=== PATIENT | female | born 1940 | race Caucasian/White ===

== ENCOUNTER 2016-06-29 01:32 | Day surgery (SDC) | payer MEDICARE ==
[~2016-06-29] VITALS: Ht 162.6 cm; Wt 47.6 kg
[2016-06-29] VITALS (7 sets, daily range): BP systolic 117–132; BP diastolic 68–77; PULSE 102–111; RESP 14–16; O2SAT 93–97
[~2016-06-29 01:32] MED LIST: ASPI-973 PO; CHOL200047 PO; ESTR1TAB24 PO; HYDR-4003 PO; INSLIS SUBQ; INSU100V7 SUBQ; PRAV20TA2 PO
[2016-06-29] MEDS ORDERED: fentaNYL-PF 50 mCg/mL 2 mL Inj IVPUSH PRN (06:00)
[2016-06-29] MEDS ORDERED: Sodium Chloride LOK Flush 10 mL Syringe IV PRN (06:00)
[2016-06-29] MEDS ORDERED: 0.9% Sodium Chloride 1,000 ML IV SCH (06:00)
[2016-06-29] MEDS ORDERED: 0.9% Sodium Chloride 1,000 ML IV ONE (09:12)
--- NOTE | 2016-06-29 10:22 | ENDO ---
[address] [address] ENDOSCOPY PROCEDURE PATIENT: GILLES THAPA : 1940 MR#: [id number] ADMIT: 06/29/2016 JOB ID: [id number] DATE: 06/29/2016 PROCEDURE: Colonoscopy. INDICATIONS: Screening. The patient's ASA classification is 2. Mallampati score is 2. MEDICATIONS: 1. Versed 8 mg. 2. Fentanyl 175 mcg. INSTRUMENT USED: PCF H 190 DL. PREPARATION QUALITY: Was fair. PROCEDURE DETAILS: After informed consent was obtained, the patient was brought into the GI suite, where she was placed on oxygen via nasal cannula and monitored with continuous pulse oximeter, telemetry and blood pressure monitoring. A time-out was performed. Then, she was placed in a left lateral decubitus position. Medications were administered for sedation. Digital rectal examination was performed, which was unremarkable. The colonoscope was then inserted into the rectum and advanced under direct visualization to the cecum, which was identified by the presence of the ileocecal valve and appendiceal orifice. Once the cecum was reached, the colonoscope was withdrawn back into the rectum as the mucosa and lumen were examined. In the rectum, retroflexion was performed. Following retroflexion, remaining air in the rectum was suctioned, and the procedure was completed. FINDINGS: 1. In the proximal ascending colon just distal to the ileocecal valve, there was an approximately 1.5 cm flat polyp. The polyp had mucus adherent to it and appearance was suggestive of a serrated polyp. Using normal saline, we lifted the polyp. However, there was a small portion that did not lift. The portion that lifted we removed in a piecemeal fashion. The small portion that did not left that we were unable to remove with a snare we removed with hot biopsy forceps. The resulting mucosal defect was approximated with placement of four hemoclips. 2. Just distal to this polyp in the ascending colon as well, there was an approximately 2.5 cm flat polyp overlying a fold. As the patient was having discomfort from prolonged procedure, Tess ink was injected distal to and proximal to the polyp for future identification. The remainder of the colon examination was otherwise unremarkable. There were a few scattered diverticula in the left side of the colon. 3. Retroflexed views in the rectum were unremarkable. IMPRESSION: 1. One ascending colon polyp removed and then four hemoclips placed. The second ascending colon polyp that was identified that was not removed. 2. Scattered diverticula throughout the left side of the colon. RECOMMENDATIONS: 1. Avoid nonsteroidal anti-inflammatory drugs and anticoagulants for five days. 2. Will schedule for repeat colonoscopy in 1-2 months for removal of ascending colon polyp that was not removed on today's examination. COMPLICATIONS: None. ESTIMATED BLOOD LOSS: Less than 10 mL.
--- NOTE | 2016-06-30 14:37 | PATH ---
SURGICAL PATHOLOGY Attending Physician:Veronika Ward CASE STATUS: Signed Out PATIENT NAME: GILLES THAPA PID: [id number] : 1940 DATE COLLECTED:06/29/2016 17:08 SPECIMEN: Colon, Biopsy CLINICAL HISTORY: 1. 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 ICD10: K63.5 GROSS DESCRIPTION: The specimen is received in one formalin filled container labeled with the patient's name, sublabeled "ascending polyp x1" and consists of 4 portions of tissue which aggregate to 0.6-0.6 x 0.4 CM. The specimen is entirely submitted in one cassette. 06/29/2016 [facility] ICD-9 CODES: CPT CODES: 1: 13661 Electronically Signed Out Loyda Ford MD [facility] Pathology [facility] [address], [place] [address] Technical component performed at [facility], [facility] [address], [place], [address]
== END 2016-06-29 23:59 | disposition home or self-care (01) ==
LOC: END 01:32
PROVIDERS: ATTEND Internal Medicine Gastroenterology
DX: Z12.11 Encounter for screening for malignant neoplasm of colon (principal); Z86.010 Personal history of colon polyps; D12.2 Benign neoplasm of ascending colon; K57.30 Diverticulosis of large intestine without perforation or abscess without bleeding; E10.65 Type 1 diabetes mellitus with hyperglycemia; E10.43 Type 1 diabetes mellitus with diabetic autonomic (poly)neuropathy; E78.5 Hyperlipidemia, unspecified; K21.9 Gastro-esophageal reflux disease without esophagitis; M81.8 Other osteoporosis without current pathological fracture; M51.26 Other intervertebral disc displacement, lumbar region; F17.290 Nicotine dependence, other tobacco product, uncomplicated; Z79.4 Long term (current) use of insulin; Z86.73 Personal history of transient ischemic attack (TIA), and cerebral infarction without residual deficits; Z79.82 Long term (current) use of aspirin; Z79.890 Hormone replacement therapy; Z90.710 Acquired absence of both cervix and uterus
CPT/HCPCS: 45381; 45385; 99153; G0500; J7030

== ENCOUNTER 2016-07-01 18:40 | Inpatient (IN) | payer MEDICARE ==
[~2016-07-01] VITALS: Ht 162.6 cm; Wt 49.6 kg
[2016-07-01 18:49] VITALS: BP 159/100; PULSE 130; RESP 20; O2SAT 96
[2016-07-01 19:17] VITALS: BP 119/54; PULSE 120; RESP 10; O2SAT 94
--- NOTE | 2016-07-01 19:38 | ED.REPORT ---
HPI-GI Bleed Date of Service July 01, 2016 ED Provider: Jose E Borja MD A 75 year old female with a history of diabetes and recent polyp removal presents to the ED complaining of rectal bleeding. The pt had a colonoscopy on 06/29/2016 and had one polyp removed. There were two other polyps that were not removed due to location and risk of bleeding. The pt experienced no bleeding yesterday. She had a normal bowel movement this morning but subsequently began experiencing significant rectal bleeding of bright red blood with bowel movements. This was accompanied by lightheadedness but she denies pain or vomiting. The pt is prescribed 105 mg of Vicodin every two months. Nursing Notes Stated Complaint: RECTAL BLEEDING Chief Complaint: Female Abdominal Pain Nursing Notes Reviewed: Yes Allergies: Coded Allergies: erythromycin base (Verified Allergy, Severe, stomach cramping, 01/19/10) Penicillins (Verified Allergy, Intermediate, 06/28/16) codeine (Verified Allergy, Intermediate, headache, 01/19/10) lovastatin (Verified Allergy, Intermediate, 06/28/16) Tetracyclines (Verified Allergy, Mild, 06/28/16) lisinopril (Verified Allergy, Mild, 06/28/16) Uncoded Allergies: INTOLERANCE TO UNKNOWN ABX (Adverse Reaction, Unknown, 02/15/09) Scheduled Aspirin (Aspirin) 81 Mg Tablet 81 MG PO DAILY Cholecalciferol (Vitamin D3) (Vitamin D3) 2,000 Unit Capsule 2,000 UNIT PO DAILY Estradiol (Estradiol) 1 Mg Tablet 1 MG PO DAILY Insulin Glargine (Lantus U100 Insulin Vial) 100 Unit/Ml Vial 10 UNITS SUBQ HS Pravastatin (Pravastatin) 20 Mg Tablet 20 MG PO DAILY Scheduled PRN Hydrocodone-Acetaminophen 5-325 mg (Hydrocodone-Acetaminophen 5-325 mg) 1 Each Tablet 1 TABLET PO Q4H PRN PRN For Pain Insulin Human Lispro (HumaLOG U100 Insulin Vial) 100 Unit/Ml Unit 4-5 UNIT SUBQ DIRECTED PRN PRN DM Check blood sugars before meals and at bedtime. Use correction factor only before meals. Blood Sugar Lispro Correction: <151, 0 units; 151-175, 1 unit; 176-200, 2 units; 201-225, 3 units; 226-250, 4 units; 251-275, 5 units; 276-300 , 6 units; 301-325, 7 units; 326-350, 8 units; 351-375, 9 units; 376-400, 10 units; >400, 12 units. General Time Seen by Provider: 19:37 Chief Complaint Chief Complaint: Other (rectal bleeding) Hx Obtained From: Patient Arrived By: Walk-in Onset Occurred: 9 - 12 hours ago Symptom Duration: Intermittent Recent Healthcare: Recent doctor visit Similar Sx Previous: No Past Medical History Past Medical History Type 1 DM Osteoarthritis Gastroparesis GERD Osteoporosis Past Surgical History Appendectomy Cholecystectomy Hysterectomy Fracture repairs Smoking History Current Every Day Smoker Social History Alcohol Use: 1-3 per day Ambulatory Status Independent Review of Systems Review of Systems Note: rectal bleeding Respiratory: Denies: Non-productive cough, Shortness of breath GI: Denies: Abdominal pain, Vomiting Neurologic: Reports: Lightheaded Complete sys rev & neg: except as marked. Physical Exam Initial Vital Signs Vital Signs (First) Date Time Temp Pulse Resp B/P Pulse Ox O2 Delivery O2 Flow Rate FiO2 07/01/16 18:49 36.2 130 20 159/100 96 Room Air Initial VS: Reviewed General/Constitutional: Awake, Alert Respiratory / Chest: Atraumatic, Breath sounds NL, Breath sounds = bilat, No respiratory distress Cardiovascular: Regular rhythm, Heart sounds NL Heart Rate / Rhythm: Positive: Tachycardia Abdomen: Atraumatic, Soft, No guarding, No rebound mild diffuse tenderness Rectum / Perineum: Atraumatic bright red blood outside the rectum gross maroon blood in rectum Head / Eyes: Atraumatic, Normocephalic, PERRL, EOMI ENT: Atraumatic, Airway patent, Mucous membranes moist Skin Skin: Atraumatic, Color NL, No rash, Warm, Dry Neurologic: Oriented X3, Speech NL, No motor deficits, No sensory deficits Neck: Atraumatic, Supple, Full range of motion Back: Atraumatic, Full range of motion Upper Extremity / MS: Atraumatic, Full range of motion Lower Extremity / Pelvis / MS: Atraumatic, Full range of motion Psychiatric: Affect NL, Mood NL Interpretation & Diagnostics Lab Results Interpretation Result Diagram: 07/01/16191907/01/161919 Test 07/01/16 19:20 White Blood Count 10.8th/mm3 (3.8-10.1) Red Blood Count 3.95mil/mm3 (3.90-5.20) Hemoglobin 13.1g/dL (12.0-15.6) Hematocrit 38.7% (35.0-46.0) Mean Corpuscular Volume 98.0fL (81-100) Mean Corpuscular Hemoglobin 33.2pg (27.0-35.0) Mean Corpuscular Hemoglobin Concent 33.9% (32.0-37.0) Red Cell Distribution Width 12.5% (12.3-15.4) Platelet Count 304bil/L (150-400) Neutrophils (%) (Auto) 73.6% (40-74) Lymphocytes (%) (Auto) 17.2% (14-46) Monocytes (%) (Auto) 7.3% (4-12) Eosinophils (%) (Auto) 0.8% (0-5) Basophils (%) (Auto) 0.7% (0-3) Prothrombin Time 10.0sec (8.1-12.5) Prothromb Time International Ratio 0.94ratio Sodium Level 136mEq/L (134-144) Potassium Level 4.3mEq/L (3.5-5.2) Chloride Level 95mEq/L (97-108) Carbon Dioxide Level 23mmol/L (18-29) Blood Urea Nitrogen 8mg/dL (8-27) Creatinine 0.51mg/dL (0.57-1.00) Estimat Glomerular Filtration Rate 169mL/min (>59) Glucose Level 419mg/dL (60-99) Calcium Level 8.8mg/dL (8.5-10.1) Total Bilirubin 0.4mg/dL (0.0-1.2) Aspartate Amino Transf (AST/SGOT) 15U/L (0-50) Alanine Aminotransferase (ALT/SGPT) 10U/L (0-32) Alkaline Phosphatase 104U/L (25-165) Total Protein 6.2g/dL (6.4-8.4) Albumin 3.5g/dL (3.4-5.0) ECG Interpretation ECG Interpretation: sinus tachycardia with a rate of 120 Time: 19:36 Interpreted by: ED physician Re-Eval/Medical Decision Source of Hx: Old records Re-Evaluation/Progress #1: Time of Eval: 20:29 Re-Evaluation/Progress Note: Spoke with Duke, pt's son, on the phone. Pt's son is informed of the plan for admission. Re-Evaluation/Progress #2: Time of Eval: 22:15 Patient Status: Condition improved Re-Evaluation/Progress Note: Current heart rate is 109. Patient is resting comfortably. Consultation #1: Consulted With: Hospitalist Call Returned at: 20:37 Investment Fund Manager: Agrees with eval, Agrees with plan, Accepts admit Note: Spoke with Dr. Patino, hospitalist, regarding pt's case. Dr. Patino agrees with the evaluation and agrees to admit the pt. Consultation #2: Referral / Consult Name: Dexter Mullen MD Call Returned at: 20:40 Investment Fund Manager: Agrees with eval, Agrees with plan Note: Consulted with ALEXEI Go, regarding pt's case. Dr. Mullen agrees with the evaluation and plan and agrees to consult. Consultation #3: Referral / Consult Name: Dexter Mullen MD Call Returned at: 21:06 Investment Fund Manager: Agrees with eval, Agrees with plan Note: Spoke with ALEXEI Go, regarding pt's case. Dr. Mullen recommends prepping the pt for colonoscopy. Counseled Regarding: Diagnosis, Lab results, Need for admission Discharge & Departure Impression: Primary Impression: Lower GI bleed Disposition: ADMITTED TO HOSPITAL Discharge Condition All VS Reviewed: Yes Condition: Stable Referrals: Velasquez Elizabeth MD (PCP) Karyna Mata MD Attestation Portions of this note were transcribed by Areli Logan. I, Dr. Borja personally performed the history, physical exam and medical decision-making; I reviewed and confirmed the accuracy of the information in the transcribed note. Signed by: Sarah Saenz, 07/01/16 and 2041. copies to: Karyna Mata MD; Velasquez Elizabeth MD, Kirk H MD July 01, 2016 19:38 ARELI LOGAN July 01, 2016 19:59
[2016-07-01 19:43] LABS: BASOPHILS % (AUTO) 0.7 % (0-3); EOSINOPHILS % (AUTO) 0.8 % (0-5); MONOCYTES % (AUTO) 7.3 % (4-12); Mean Corpuscular Hemoglobin 33.2 pg (27.0-35.0); NEUTROPHILS % (AUTO) 73.6 % (40-74); Platelet Count 304 bil/L (150-400)
[2016-07-01 19:59] LABS: INR 0.94 ratio
[2016-07-01 21:00] VITALS: BP 121/67; PULSE 121; RESP 28; O2SAT 97
[2016-07-01] MEDS ORDERED: 0.9% Sodium Chloride 1,000 ML IV ONE (21:00)
[2016-07-01] MEDS ORDERED: PEG/Electrolytes 4,000 mL Solution PO ONE (21:10)
--- NOTE | 2016-07-01 21:38 | PCM.HPMED ---
Subjective Date of Service July 01, 2016 Primary Provider: Admitting Physician: Torsten Patino MD Primary Care Physician: Velasquez Elizabeth MD Attending Physician: Torsten Patino MD Admit Status: From the Emergency Department Chief Complaint: Acute rectal bleed onset 07/01/2016 status post colonoscopy and polyp biopsy 06/30/2015 History of Present Illness: This is a 75 Y/O F with hx of DM type I and recent colonoscopy with polypectomy 2 days ago () by GI, who presented to the ED with complaint of bright red blood per rectum, reportedly combined with small black specks approximately 1 hour after passing a normal bowel movement this morning. The pt had a colonoscopy on 06/29/2016 and had one polyp removed. There were two other polyps that were not removed due to location and risk of bleeding. The pt experienced no bleeding yesterday. Patient states that she has had 8-9 episodes of bleeding all day today requiring her to go to the toilet. She states that around 6:30 PM she began to feel lightheaded and and generalized weakness which prompted her to come to the ED. Patient usually takes 2 baby aspirin per day however she had not taken aspirin today. She did take aspirin yesterday. She is on no other blood thinners. She has no history of bleeding disorder. Patient denies dizziness, nausea, vomiting, fever, headache, vision changes, diarrhea, constipation, abdominal pain. In the ED patient received Colyte 4000 mL once. She received 1 L normal saline bolus. She was admitted to the hospital for acute rectal bleed and lightheadedness. GI is aware of patient. Vital signs in the ED: Temperature 36.2, pulse 1:30, respiratory rate 20, blood pressure 159/100, map 119, pulse ox 96% on room air Hemogram showed WBCs 10.8, H/H 13.1/38.7, MCV 98.0, MCH 33.2, MCHC 33.9, platelets 304, otherwise normal hemogram. Chemistry panel: Glucose 419, right 95, otherwise normal PT INR 10.0/0.94 Review of Systems: A comprehensive review of systems was conducted and was negative except as mentioned in history of present illness. Allergies Coded Allergies: erythromycin base (Verified Allergy, Severe, stomach cramping, 01/19/10) Penicillins (Verified Allergy, Intermediate, 06/28/16) codeine (Verified Allergy, Intermediate, headache, 01/19/10) lovastatin (Verified Allergy, Intermediate, 06/28/16) Tetracyclines (Verified Allergy, Mild, 06/28/16) lisinopril (Verified Allergy, Mild, 06/28/16) Uncoded Allergies: INTOLERANCE TO UNKNOWN ABX (Adverse Reaction, Unknown, 02/15/09) Home Medications Aspirin (Aspirin) 81 Mg Tablet 81 MG PO DAILY Cholecalciferol (Vitamin D3) (Vitamin D3) 2,000 Unit Capsule 2,000 UNIT PO DAILY Estradiol (Estradiol) 1 Mg Tablet 1 MG PO DAILY Insulin Glargine (Lantus U100 Insulin Vial) 100 Unit/Ml Vial 10 UNITS SUBQ HS Pravastatin (Pravastatin) 20 Mg Tablet 20 MG PO DAILY PRN Hydrocodone-Acetaminophen 5-325 mg (Hydrocodone-Acetaminophen 5-325 mg) 1 Each Tablet 1 TABLET PO Q4H PRN PRN For Pain Insulin Human Lispro (HumaLOG U100 Insulin Vial) 100 Unit/Ml Unit 4-5 UNIT SUBQ DIRECTED PRN PRN DM Check blood sugars before meals and at bedtime. Use correction factor only before meals. Blood Sugar Lispro Correction: <151, 0 units; 151-175, 1 unit; 176-200, 2 units; 201-225, 3 units; 226-250, 4 units; 251-275, 5 units; 276-300 , 6 units; 301-325, 7 units; 326-350, 8 units; 351-375, 9 units; 376-400, 10 units; >400, 12 units. PMH Type 1 DM Tobacco use and trying to quit History of ischemic stroke December 2015 Osteoarthritis Gastroparesis GERD Osteoporosis Surgical History Appendectomy age 13 Cholecystectomy 9 years ago Hysterectomy age 49 Fracture repairs of left wrist fracture and left tibia fracture Family History Father HI Mother cancer of unknown type Sister breast cancer Sister tumor Brother after a broken hip Social History Hx Alcohol Use: Yes Alcoholic Drinks Per Day: 2-3 glasses white wine Hx Substance Use: No Hx Tobacco Use: Yes (1/2ppd) Smoking Status: Current Every Day Smoker Exam Vital Signs Vital Sign - Last Date Time Temp Pulse Resp B/P Pulse Ox O2 Delivery O2 Flow Rate FiO2 07/01/16 21:00 121 28 121/67 97 Room Air 07/01/16 18:49 36.2 Exam General: Patient is alert and oriented 3, in no acute distress, was initially sleeping at time of interview. HEENT: NC/AT, eyes, conjunctiva pale, PERRLA, EOMI, neck, soft supple, no adenopathy, no JVD, no masses, no thyromegaly, throat mucous membranes pink and moist/Dry, edentulous, no erythema, no exudates, no tonsillar swelling, no uvular deviation. Lungs: CTAB all peres, no wheezes, no rhonchi, no crackles, no adventitious lung sounds, no use of accessory muscles of respiration, good air movement, good respiratory effort. Heart: Regular rate and rhythm, grade 2/6 systolic murmur heard best at the left sternal border, no rub, no click, no distant heart sounds, Abdomen: Soft, nontender, nondistended, bowel sounds active, no rebound, no guarding, Genitourinary: No CVA tenderness, no suprapubic tenderness, no Maurice catheter, Extremities: Pulses equal and symmetric upper/lower extremity including radial and dorsalis pedis, no edema Neurologic: Grossly neurologically intact, speaking in full sentences, no focal neurological signs. Skin: Warm dry and intact without tenting Psychiatric: Mood is cheerful and mood and affect are congruent and appropriate. Lab and Diagnostics Result Diagram: 07/01/16191907/01/161919 Assessment & Plan # Acute rectal bleed, present on admission, active - Patient blood type A+ - Patient is status post colonoscopy with biopsy be by Dr. Gross, who presented to the ED with acute onset rectal bleeding 2 days after her colonoscopy. GI has been consulted by the ED and is aware of the patient. - In the ED patient received Colyte 4000 mL once. - She received 1 L normal saline bolus. - Hemogram showed WBCs 10.8, H/H 13.1/38.7, MCV 98.0, MCH 33.2, MCHC 33.9, platelets 304, otherwise normal hemogram. - PT INR 10.0/0.94 - Stool Hemoccult - IV fluids normal saline at 100 mL per hour. - We will type and crossmatch 2 units PRBC's - Transfusion threshold of 8 - GI Sebas Renteria, has been consulted and is aware of patient and will see patient in the morning. 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 # Hyperglycemia, and a known type 1 diabetic - Glucose 410 in the ED - We will start medium dose correctional insulin - Continue home medications Lantus U1 100, 10 units subcutaneous at bedtime Chronic problems # Type 1 DM, - Continue home medications Lantus U1 100, 10 units subcutaneous at bedtime - We will start med-dose correctional scale insulin, patient on lispro 100 units at home and takes 4-5 units subcutaneous as directed when necessary # History of ischemic stroke - Continue medication pravastatin 20 mg by mouth daily # Osteoarthritis, assume stable Patient takes Vicodin 06/28/2024 milligrams 1 tablet by mouth every 4 hours when necessary for pain # Tobacco use disorder - He smokes 12 cigarettes per day - Nicotine patch while in-house #Gastroparesis, stable #GERD, stable #Osteoporosis, assume stable Disposition: Admitted to in patient service with expected length of stay greater than 2 days, secondary to severity of presenting symptoms, treatment plan, complexity of clinical work up, and risk of adverse events. CODE STATUS: Full code PCP: Velasquez Elizabeth MD DVT PE prophylaxis: SCD's Contact: Duke fagan's son [phone] Pain Evaluation: Adequate Pain Control VTE Prophylaxis: SCDs Resuscitation Status: CPR: Attempt Resuscitation Attending Statement The patient was seen and examined together with Dr. House on 07/01 and I agree with the history, exam and plan as outlined in the note above. Des House DO July 01, 2016 21:38 Torsten Patnio MD July 02, 2016 02:47
[2016-07-01] MEDS ORDERED: Alum-Mag Hydrox-Simeth 30 mL Suspension PO PRN (21:55)
[2016-07-01] MEDS ORDERED: Polyethylene Glycol (PEG) 17 Gm Powder PO PRN (21:55)
[2016-07-01] MEDS ORDERED: Ondansetron 2 mg/mL 2 mL Inj IVPUSH PRN (21:55)
[2016-07-01 23:08] VITALS: BP 111/62; PULSE 111; RESP 16; O2SAT 96
[2016-07-01] MEDS ORDERED: MULT-1065 PO (23:13)
[2016-07-02] VITALS (11 sets, daily range): BP systolic 84–139; BP diastolic 41–69; PULSE 94–118; RESP 16–20; O2SAT 95–100
[2016-07-02] MEDS: 0.9% Sodium Chloride 1,000 ML IV SCH ×3 (00:17→22:43)
[2016-07-02] MEDS: Sodium Chloride LOK Flush 10 mL Syringe IVFLUSH SCH ×3 (00:19→17:08)
[2016-07-02] MEDS ORDERED: Glucose 40% Oral Gel 15 Gm Tube PO PRN (02:15)
[2016-07-02] MEDS: Insulin LISPRO 300 Unit/3 mL Inj SUBQ SCH ×5 (02:18→21:04)
[2016-07-02] MEDS: Insulin GLARgine 100 Unit/mL Syringe SUBQ SCH ×2 (03:30→21:04)
[2016-07-02 03:53] LABS: BASOPHILS % (AUTO) 0.6 % (0-3); EOSINOPHILS % (AUTO) 1.4 % (0-5); MONOCYTES % (AUTO) 9.2 % (4-12); Mean Corpuscular Hemoglobin 34.2 pg (27.0-35.0); Mean Corpuscular Volume 98.7 fL (81-100); NEUTROPHILS % (AUTO) 63.6 % (40-74); Platelet Count 215 bil/L (150-400)
--- NOTE | 2016-07-02 10:04 | PCM.HPANE ---
Patient Data Date of Service: July 02, 2016 Surgeon Admitting Provider:Torsten Patino MD Attending Provider:Torsten Patino MD Primary Care Physician:Velasquez Elizabeth MD Other Provider: Reason for Visit Lower Gi Bleed Ht/WT & BMI Height (Feet): 5 Height (Inches): 4.00 Weight (Kilograms): 45.600 Body Mass Index 17.16 Allergies Coded Allergies: erythromycin base (Verified Allergy, Severe, stomach cramping, 01/19/10) Penicillins (Verified Allergy, Intermediate, 06/28/16) codeine (Verified Allergy, Intermediate, headache, 01/19/10) lovastatin (Verified Allergy, Intermediate, 06/28/16) Tetracyclines (Verified Allergy, Mild, 06/28/16) lisinopril (Verified Allergy, Mild, 06/28/16) Uncoded Allergies: INTOLERANCE TO UNKNOWN ABX (Adverse Reaction, Unknown, 02/15/09) Past Anesthesia History Anesthesia History: Denies:: Anesthesia Reactions, Fam Malignant Hypertherm Diabetes History Hx Diabetes?: Yes (t1 insulin dependent) Type of Diabetes: Type I Glycemic Control: Insulin Dependent Current Bedside Blood Glucose: 276 MRSA MRSA: No Medications Blood Thinner: Aspirin Hypertension Medication: No Home Meds Incl Beta Ilia: No Reported Medications Multivits-Min/Iron/FA/Lutein (Centrum Silver Women Tablet)8 Mg Iron-400 Mcg-300 Mcg Tablet1 Each PO 07/01/16 Cholecalciferol (Vitamin D3) (Vitamin D3)2,000 Unit Capsule2,000 Unit PO DAILY 06/28/16 Estradiol 1 Mg Tablet1 Mg PO DAILY Ref 0 06/28/16 Hydrocodone-Acetaminophen 5-325 mg 1 Each Tablet1 Tablet PO Q4H PRN For Pain Ref 0 06/28/16 Insulin Human Lispro (HumaLOG U100 Insulin Vial)100 Unit/Ml Unit4-5 Unit SUBQ DIRECTED PRN DM #1 VIAL Ref 0 Check blood sugars before meals and at bedtime. Use correction factor only before meals. Blood Sugar Lispro Correction: <151, 0 units; 151-175, 1 unit; 176-200, 2 units; 201-225, 3 units; 226-250, 4 units; 251-275, 5 units; 276-300, 6 units; 301-325, 7 units; 326-350, 8 units; 351-375, 9 units; 376-400, 10 units; >400, 12 units. 06/28/16 Insulin Glargine (Lantus U100 Insulin Vial)100 Unit/Ml Vial10 Units SUBQ HS #1 VIAL Ref 0 06/28/16 Pravastatin 20 Mg [id number] Mg PO DAILY Ref 0 06/28/16 Aspirin 81 Mg [id number] Mg PO DAILY Ref 0 06/28/16 Discontinued Reported Medications Insulin Lispro-Expunged Drug, Do Not Renew! (Humalog-Expunged Drug, Do Not Renew !)100 U/Ml Vial Sq Ac SLIDING SCALE 01/18/10 Insulin Glargine-Expunged Drug, Do Not Renew! (Lantus-Expunged Drug, Do Not Renew!)100 U/Ml [id number] U Sq Hs 01/18/10 Hydrocod/APAP-Expunged, Do Not Renew! (Hydrocod/APAP 5/500-Expunged, Do Not Renew!)1 Tab Tablet1-2 Tab PO Q4 PRN Every 4-6 hours as needed 01/18/10 [estradiol] No Conflict Check1 Mg PO AM 01/18/10 History History of ENT Problems?: Yes HEENT History: Positive for:: Cataracts ("Cataract surgery a couple years ago ") Denies:: Dysphagia Glaucoma Hearing Problem Sinus Problem Denture Type: None Teeth Condition: No Teeth Missing Teeth Hx of Heart Problems?: No Cardiovascular History: Denies:: Congestive Heart Failure Hypertension Pacemaker Hx of Respiratory Problem?: No Respiratory History: Denies:: Tuberculosis Hx Neurologic Problems?: Yes Neurological History: Positive for:: Dizziness Denies:: Alzheimer's Disease CVA Dementia Headaches Parkinson's Disease Seizures Hx of GI Problems?: Yes Gastrointestinal History: Positive for:: Rectal Bleeding Hx of Problems?: No Genitourinary History: Denies:: HX of Hemodialysis Kidney Stones Urinary Tract Infection HX of Peritoneal Dialysis: No Female Hx: Denies:: Currently Endometriosis Pelvic Inflammatory Problems with Breasts? Hx Musculoskeletal Problems?: Yes Musculoskeletal History: Positive for:: Back Injury ("3 broken vertabrae") Musculoskeletal Trauma Denies:: Joint Replacement Hx of Psycho/Social Problems?: Yes Psycho Social History: Positive for:: Hx Depression (Last a few days and resolves) Denies:: Anxiety Bipolar Disorder Suicide Attempt Hx Surgeries?: Yes (appy,hyster, and fractures,lap luis) Hx Any Other Health Problems?: Yes Other History: Positive for:: Hospitalization Denies:: Cancer Thyroid Disease History Blood Transfusions: Positive for:: Accept Blood Products? Blood Transfusions Denies:: Blood Transfuse Reaction Hx Diabetes: Yes (t1 insulin dependent)Bedside Blood Glucose: 358 Hx Alcohol Use: YesAlcoholic Drinks Per Day: 2-3 glasses/wineHx Substance Use : No Smoking Status: Current Every Day Smoker Have You Smoked inLast 12 mo: YesApprox How Many Cigarettes/day: 12 Stop/Bang Treated for Sleep Apnea?: No Do You Have a CPAP Machine?: No S-Snoring: Do You Snore Loudly: No T-Tired: feel tired, fatigued: No O-Obsered: Observed not breath: No P-Blood Pressure: treated: Yes B- Body Mass Index > 35 kg/m2: No A- Age over 50: Yes N- Neck Large Circumference: No G- Gender Male: No NARINDER Total Score: 1 NARINDER Risk Assessment: Low Risk, <3 Yes Risk Assessment Category Category 1A: Patient has history of documented sleep apnea, and HAS NOT received any narcotic, sedative or anesthesia administration during this stay. Category 1B: Patient has history of documented sleep apnea, and HAS received any narcotic , sedative or anesthesia administration during this stay Category 2: Patient has SUSPECTED Obstructive Sleep Apnea, and HAS received any narcotic , sedative or anesthesia administration during this stay. Category 3: Patient has SUSPECTED Obstructive Sleep Apnea and HAS NOT received narcotic, sedative or anesthesia administration during this stay. Category 4: Outpatient in Procedural Areas with known sleep apnea or who screen positive for High Risk via the STOP/BANG questionnaire. Exam Exam Vital Signs Vital Signs Date Time Temp Pulse Resp B/P Pulse Ox O2 Delivery O2 Flow Rate FiO2 07/02/16 08:53 36.8 111 18 95/47 95 Room Air 07/02/16 05:08 106 07/02/16 03:27 36.7 112 16 127/58 98 Room Air General Appearance: Alert, Oriented X3 HEENT/AIRWAY: MP 2 Lungs: Clear to Auscultation Heart: Exam Unremarkable Meds/Labs/Diagnostics Admission Meds Current Medications Sodium Chloride (Normal Saline) 1,000 ml @ 0 mls/hr Q0M ONCE IV Last administered on 07/01/16t 21:06; Start 07/01/16 at 21:00; Stop 07/01/16 at 21:01; Status DC Sodium Chloride 10 ml 10 ml Q8 IVFLUSH Last administered on 07/02/16 09:25; Start 07/02/16 at 00:30 Sodium Chloride (Normal Saline) 1,000 ml @ 100 mls/hr Q10H IV Last administered on 07/02/16 09:15; Start 07/01/16 at 21:51 Nicotine (Nicoderm 21 mg/ 24 Hr Patch) 1 patch DAILY TOPICAL Last administered on 07/02/16 09:21; Start 07/02/16 at 08:30 Insulin Human Lispro (HumaLOG Insulin Inj) Nutritional Dose to be given pr... [facility] SUBQ Last administered on 07/02/16 09:25; Start 07/02/16 at 02:18 Cholecalciferol (Vitamin D3) 2,000 unit DAILY PO Last administered on 07/02/16 09:19; Start 07/02/16 at 08:30 Bedside Blood Glucose: 358 Labs Test 07/01/16 19:20 07/02/16 03:44 07/02/16 08:37 Prothrombin Time 10.0sec (8.1-12.5) Prothromb Time International Ratio 0.94ratio Magnesium Level 1.6mg/dL (1.6-2.6) White Blood Count 8.8th/mm3 (3.8-10.1) Red Blood Count 3.04mil/mm3 (3.90-5.20) Mean Corpuscular Volume 98.7fL (81-100) Mean Corpuscular Hemoglobin 34.2pg (27.0-35.0) Mean Corpuscular Hemoglobin Concent 34.7% (32.0-37.0) Red Cell Distribution Width 12.3% (12.3-15.4) Platelet Count 215bil/L (150-400) Neutrophils (%) (Auto) 63.6% (40-74) Lymphocytes (%) (Auto) 24.9% (14-46) Monocytes (%) (Auto) 9.2% (4-12) Eosinophils (%) (Auto) 1.4% (0-5) Basophils (%) (Auto) 0.6% (0-3) Sodium Level 139mEq/L (134-144) Potassium Level 4.5mEq/L (3.5-5.2) Chloride Level 103mEq/L (97-108) Carbon Dioxide Level 19mmol/L (18-29) Blood Urea Nitrogen 9mg/dL (8-27) Creatinine 0.37mg/dL (0.57-1.00) Estimat Glomerular Filtration Rate 245mL/min (>59) Glucose Level 278mg/dL (60-99) Calcium Level 8.2mg/dL (8.5-10.1) Total Bilirubin 0.4mg/dL (0.0-1.2) Aspartate Amino Transf (AST/SGOT) 12U/L (0-50) Alanine Aminotransferase (ALT/SGPT) 7U/L (0-32) Alkaline Phosphatase 77U/L (25-165) Total Protein 4.9g/dL (6.4-8.4) Albumin 3.2g/dL (3.4-5.0) Hemoglobin 9.6g/dL (12.0-15.6) Hematocrit 28.8% (35.0-46.0) Plan Impression Patient chart reviewed, patient interviewed and anesthestic plan with risks, benefits, and alternatives discussed, and informed consent obtained. ASA Physical Status: ASA3 Plus Emergency Anesthetic Plan: MAC Bene/Risks/Altern/Consents: Yes HP Complete Prior to Induction: Yes Juan Brown MD July 02, 2016 10:04
[2016-07-02] MEDS ORDERED: PEG/Electrolytes 4,000 mL Solution PO ONE (10:50)
--- NOTE | 2016-07-02 10:59 | PCM.CHPMED ---
Subjective Date of Service: July 02, 2016 Primary Physician: Admitting Physician: Torsten Patino MD Primary Care Physician: Velasquez Elizabeth MD Attending Physician: Torsten Patino MD Chief Complaint: Chief Complaint: Acute GI bleed History of Present Illness: GI consult note 75-year-old female who underwent colonoscopy with polypectomy on 06/29/16 who presented to the ED with complaint of large amounts of bright red blood per rectum with questionable clots. Patient states that this started after she had a normal bowel movement yesterday morning. Patient states that she has had no bleeding until yesterday when she had 8-9 episodes of sheila blood patch through rectum. Yesterday evening around 6:30 she began to be symptomatic and presented to the emergency department. Patient is on aspirin but otherwise on no other blood thinners. GI was called and last evening, colonoscopy prep was recommended for colonoscopy in am. I evaluation today the patient denies dizziness, nausea, vomiting, fever, headache, vision changes, constipation, or abdominal pain but states that she is still passing blood. Review of Systems: See history of present illness PMH Past Medical History Type 1 DM Tobacco use and trying to quit History of ischemic stroke December 2015 Osteoarthritis Gastroparesis GERD Osteoporosis Hx Any Other Health Problems?: YesHx Diabetes: YesBedside Blood Glucose: 276 Surgical History Appendectomy age 13 Cholecystectomy 9 years ago Hysterectomy age 49 Fracture repairs of left wrist fracture and left tibia fracture Home Medications Aspirin (Aspirin) 81 Mg Tablet 81 MG PO DAILY Cholecalciferol (Vitamin D3) (Vitamin D3) 2,000 Unit Capsule 2,000 UNIT PO DAILY Estradiol (Estradiol) 1 Mg Tablet 1 MG PO DAILY Insulin Glargine (Lantus U100 Insulin Vial) 100 Unit/Ml Vial 10 UNITS SUBQ HS Pravastatin (Pravastatin) 20 Mg Tablet 20 MG PO DAILY Allergies: Coded Allergies: erythromycin base (Verified Allergy, Severe, stomach cramping, 01/19/10) Penicillins (Verified Allergy, Intermediate, 06/28/16) codeine (Verified Allergy, Intermediate, headache, 01/19/10) lovastatin (Verified Allergy, Intermediate, 06/28/16) Tetracyclines (Verified Allergy, Mild, 06/28/16) lisinopril (Verified Allergy, Mild, 06/28/16) Uncoded Allergies: INTOLERANCE TO UNKNOWN ABX (Adverse Reaction, Unknown, 02/15/09) Family History Family History Father DC Mother cancer of unknown type Sister breast cancer Sister tumor Brother after a broken hip Social History Hx Alcohol Use: YesAlcoholic Drinks Per Day: 2-3 glasses/wineHx Substance Use : NoHx Tobacco Use: Yes (1/2ppd) Smoking Status: Current Every Day Smoker Living Arrangement: with Family Exam Vital Signs Vital Sign - Last Date Time Temp Pulse Resp B/P Pulse Ox O2 Delivery O2 Flow Rate FiO2 07/02/16 10:38 104 16 112/57 100 Nasal Cannula 2 07/02/16 08:53 36.8 Intake and Output 07/01/16 07/01/16 07/02/16 Cumulative From/Thru 15:00 23:00 07:00 07/01/16 18:49 - 07/02/16 06:01 Intake Total 1000 ml 572 ml 1572 ml Balance 1000 ml 572 ml 1572 ml Intake IV Total 1000 ml 572 ml 1572 ml Additional Information: Gen.: Patient no acute distress, alert and oriented HEENT, conjunctiva pale, PERRLA, neck is supple Cardio: Regular rate and rhythm, distant murmur Respiratory: CTA bilaterally no wheezes Abdomen: Soft, nontender, nondistended, active bowel tones Extremities: Pulses equal and intact Neurologic grossly intact Skin warm Psych: Appropriate mood and affect Lab and Diagnostics Result Diagram: 07/02/16 0837 07/02/16 0344 Assessment & Plan Assessment Assessment/plan 75-year-old female who presented with copious amounts of bright red blood per rectum with reported history of 8-9 frankly bloody bowel movements at home status post polypectomy 3 days ago. This morning patient denies any symptoms other than blood in stool but H&H continues to decline. Patient already received transfusions. As there continues to be ongoing bloody bowel movements with declining lab values we will take the patient for emergent colonoscopy this morning. Patient already received GoLYTELY. I have seen and examined the patient with the resident and agree with above. Thank you for allowing us participate in the care of this patient Problems: Pain Evaluation: Adequate Pain Control VTE Prophylaxis: SCDs Resuscitation Status: CPR: Attempt Resuscitation BrowningEladio ge July 02, 2016 10:59 Dexter Mullen MD July 02, 2016 14:43 Dexter Mullen MD July 02, 2016 14:43
--- NOTE | 2016-07-02 11:00 | PCM.ANEP1 ---
Post Anesthesia Phase 1 PACU Phase 1 Assessment Date of Service: July 02, 2016 Vital Signs Vital Signs Date Time Temp Pulse Resp B/P Pulse Ox O2 Delivery O2 Flow Rate FiO2 07/02/16 10:38 104 16 112/57 100 Nasal Cannula 2 07/02/16 10:00 118 07/02/16 08:53 36.8 111 18 95/47 95 Room Air 07/02/16 05:08 106 07/02/16 03:27 36.7 112 16 127/58 98 Room Air Anesthetic Administered: MAC Level of Alertness: Awake, talking Pain: No Nausea or Vomiting: No Oxygen Delivery: Room Air Lungs: Clear to Auscultation Complications: No Follow up Care: No Juan Brown MD July 02, 2016 11:00
[2016-07-02] MEDS ORDERED: Phenylephrine/NS-PF 100 mCg/mL 5 mL Syringe IVPUSH ONE (13:39)
[2016-07-02] MEDS ORDERED: Propofol 10,000 mCg/mL 20 mL Inj ONE (13:39)
[2016-07-02] MEDS ORDERED: fentaNYL-PF 50 mCg/mL 2 mL Inj ONE (13:39)
--- NOTE | 2016-07-02 14:28 | PCM.PNMED ---
Subjective Date of Service July 02, 2016 Subjective reports ongoing bright red blood per rectum. denies any abdominal pain, nausea, vomiting. no other new issues/complaints. Exam Vital Signs Vital Sign - Last Date Time Temp Pulse Resp B/P Pulse Ox O2 Delivery O2 Flow Rate FiO2 07/02/16 11:54 118 18 139/69 99 Room Air 07/02/16 10:38 2 07/02/16 08:53 36.8 Intake and Output 07/01/16 07/01/16 07/02/16 Cumulative From/Thru 15:00 23:00 07:00 07/01/16 18:49 - 07/02/16 06:01 Intake Total 1000 ml 572 ml 1572 ml Balance 1000 ml 572 ml 1572 ml Intake IV Total 1000 ml 572 ml 1572 ml General: Alert, Cooperative, No Acute Distress Head: Normal Eyes: Scleral Anicteric Nose: Mucous Membr Moist/Fontana Mouth: Mucous Membr Moist/Fontana Neck: Supple Chest & Lungs: Chest Wall Normal, Clear to auscultation & percussion Cardiovascular: Regular Rate/Rhythm Abdomen: Non-tender, Non-distended, Normoactive bowel tones, Soft Extremities: No cyanosis/clubbing/edma bilat Neurological: Grossly Neurologically Intact, Normal Speech Lab and Diagnostics Result Diagram: 07/02/16 1325 07/02/16 0344 Assessment & Plan 75 year old female with history of DM type I and recent colonoscopy with polypectomy 2 days prior to presentation presents with report of bright red blood per rectum # Acute lower GI bleed 2 days after her colonoscopy, present on admission, active - Appreciate GI consult. Will followup with recommendations - Tentative plan is for colonoscopy today. 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 # History of ischemic stroke - Continue medication pravastatin 20 mg by mouth daily - Aspirin on hold given GI bleed noted above - Resumption of Aspirin per GI recommendations. Chronic and stable problems: # Osteoarthritis, assume stable - Patient takes Vicodin 06/28/2024 milligrams 1 tablet by mouth every 4 hours when necessary for pain # Tobacco use disorder - Smokes 12 cigarettes per day - Nicotine patch while in-house # Diabetic Gastroparesis, stable # GERD, stable # Osteoporosis, assume stable Disposition: possibly home in 1-2 days pending colonoscopy finding, stable h/h and ability to tolerate advancing diet. VTE Prophylaxis: SCDs Resuscitation Status: CPR: Attempt Resuscitation Luis Henriquez July 02, 2016 14:28
--- NOTE | 2016-07-02 15:52 | PCM.HPANE ---
Patient Data Date of Service: July 02, 2016 Surgeon Admitting Provider:Torsten Patino MD Attending Provider:Torsten Patino MD Primary Care Physician:Velasquez Elizabeth MD Other Provider: Reason for Visit Lower Gi Bleed Ht/WT & BMI Height (Feet): 5 Height (Inches): 4.00 Weight (Kilograms): 45.600 Body Mass Index 17.00 Allergies Coded Allergies: erythromycin base (Verified Allergy, Severe, stomach cramping, 01/19/10) Penicillins (Verified Allergy, Intermediate, 06/28/16) codeine (Verified Allergy, Intermediate, headache, 01/19/10) lovastatin (Verified Allergy, Intermediate, 06/28/16) Tetracyclines (Verified Allergy, Mild, 06/28/16) lisinopril (Verified Allergy, Mild, 06/28/16) Uncoded Allergies: INTOLERANCE TO UNKNOWN ABX (Adverse Reaction, Unknown, 02/15/09) Past Anesthesia History Anesthesia History: Denies:: Anesthesia Reactions, Fam Anesthesia Reaction, Fam Malignant Hypertherm, Malignant Hyperthermia Diabetes History Hx Diabetes?: Yes Type of Diabetes: Type I Glycemic Control: Insulin Dependent Current Bedside Blood Glucose: 267 MRSA MRSA: No Medications Blood Thinner: Aspirin Hypertension Medication: No Home Meds Incl Beta Ilia: No Reported Medications Multivits-Min/Iron/FA/Lutein (Centrum Silver Women Tablet)8 Mg Iron-400 Mcg-300 Mcg Tablet1 Each PO 07/01/16 Cholecalciferol (Vitamin D3) (Vitamin D3)2,000 Unit Capsule2,000 Unit PO DAILY 06/28/16 Estradiol 1 Mg Tablet1 Mg PO DAILY Ref 0 06/28/16 Hydrocodone-Acetaminophen 5-325 mg 1 Each Tablet1 Tablet PO Q4H PRN For Pain Ref 0 06/28/16 Insulin Human Lispro (HumaLOG U100 Insulin Vial)100 Unit/Ml Unit4-5 Unit SUBQ DIRECTED PRN DM #1 VIAL Ref 0 Check blood sugars before meals and at bedtime. Use correction factor only before meals. Blood Sugar Lispro Correction: <151, 0 units; 151-175, 1 unit; 176-200, 2 units; 201-225, 3 units; 226-250, 4 units; 251-275, 5 units; 276-300, 6 units; 301-325, 7 units; 326-350, 8 units; 351-375, 9 units; 376-400, 10 units; >400, 12 units. 06/28/16 Insulin Glargine (Lantus U100 Insulin Vial)100 Unit/Ml Vial10 Units SUBQ HS #1 VIAL Ref 0 06/28/16 Pravastatin 20 Mg [id number] Mg PO DAILY Ref 0 06/28/16 Aspirin 81 Mg [id number] Mg PO DAILY Ref 0 06/28/16 Discontinued Reported Medications Insulin Lispro-Expunged Drug, Do Not Renew! (Humalog-Expunged Drug, Do Not Renew !)100 U/Ml Vial Sq Ac SLIDING SCALE 01/18/10 Insulin Glargine-Expunged Drug, Do Not Renew! (Lantus-Expunged Drug, Do Not Renew!)100 U/Ml [id number] U Sq Hs 01/18/10 Hydrocod/APAP-Expunged, Do Not Renew! (Hydrocod/APAP 5/500-Expunged, Do Not Renew!)1 Tab Tablet1-2 Tab PO Q4 PRN Every 4-6 hours as needed 01/18/10 [estradiol] No Conflict Check1 Mg PO AM 01/18/10 History History of ENT Problems?: Yes HEENT History: Positive for:: Cataracts ("Cataract surgery a couple years ago ") Denies:: Dysphagia Glaucoma Hearing Problem Sinus Problem Denture Type: None Teeth Condition: No Teeth Missing Teeth Hx of Heart Problems?: No Cardiovascular History: Denies:: Congestive Heart Failure Hypertension Pacemaker Hx of Respiratory Problem?: No Respiratory History: Denies:: Tuberculosis Hx Neurologic Problems?: Yes Neurological History: Positive for:: Dizziness Denies:: Alzheimer's Disease CVA Dementia Headaches Parkinson's Disease Seizures Hx of GI Problems?: Yes Hx of Problems?: No Genitourinary History: Denies:: HX of Hemodialysis Kidney Stones Urinary Tract Infection HX of Peritoneal Dialysis: No Female Hx: Denies:: Currently Endometriosis Pelvic Inflammatory Problems with Breasts? Hx Musculoskeletal Problems?: Yes Musculoskeletal History: Positive for:: Back Injury ("3 broken vertabrae") Musculoskeletal Trauma Denies:: Joint Replacement Hx of Psycho/Social Problems?: Yes Psycho Social History: Positive for:: Hx Depression (Last a few days and resolves) Denies:: Anxiety Bipolar Disorder Suicide Attempt Hx Surgeries?: Yes (appy,hyster, and fractures,lap luis) Hx Any Other Health Problems?: Yes Other History: Positive for:: Hospitalization Denies:: Cancer Thyroid Disease History Blood Transfusions: Positive for:: Accept Blood Products? Blood Transfusions Denies:: Blood Transfuse Reaction Hx Diabetes: YesBedside Blood Glucose: 267 Hx Alcohol Use: YesAlcoholic Drinks Per Day: 2-3 glasses/wineHx Substance Use : No Smoking Status: Current Every Day Smoker Have You Smoked inLast 12 mo: YesApprox How Many Cigarettes/day: 12 Stop/Bang Treated for Sleep Apnea?: No Do You Have a CPAP Machine?: No S-Snoring: Do You Snore Loudly: No T-Tired: feel tired, fatigued: No O-Obsered: Observed not breath: No P-Blood Pressure: treated: Yes B- Body Mass Index > 35 kg/m2: No A- Age over 50: Yes N- Neck Large Circumference: No G- Gender Male: No NARINDER Total Score: 2 NARINDER Risk Assessment: Low Risk, <3 Yes Risk Assessment Category Category 1A: Patient has history of documented sleep apnea, and HAS NOT received any narcotic, sedative or anesthesia administration during this stay. Category 1B: Patient has history of documented sleep apnea, and HAS received any narcotic , sedative or anesthesia administration during this stay Category 2: Patient has SUSPECTED Obstructive Sleep Apnea, and HAS received any narcotic , sedative or anesthesia administration during this stay. Category 3: Patient has SUSPECTED Obstructive Sleep Apnea and HAS NOT received narcotic, sedative or anesthesia administration during this stay. Category 4: Outpatient in Procedural Areas with known sleep apnea or who screen positive for High Risk via the STOP/BANG questionnaire. Low Risk, <3 Yes Exam Exam Vital Signs Vital Signs Date Time Temp Pulse Resp B/P Pulse Ox O2 Delivery O2 Flow Rate FiO2 07/02/16 11:54 118 18 139/69 99 Room Air 07/02/16 11:00 Room Air 07/02/16 10:38 104 16 112/57 100 Nasal Cannula 2 07/02/16 10:00 118 07/02/16 08:53 36.8 111 18 95/47 95 Room Air General Appearance: Alert, Cooperative, No Acute Distress HEENT/AIRWAY: MP 2 Lungs: Clear to Auscultation Heart: Exam Unremarkable Meds/Labs/Diagnostics Admission Meds Current Medications Sodium Chloride (Normal Saline) 1,000 ml @ 0 mls/hr Q0M ONCE IV Last administered on 07/01/16 21:06; Start 07/01/16 at 21:00; Stop 07/01/16 at 21:01; Status DC Sodium Chloride 10 ml 10 ml Q8 IVFLUSH Last administered on 07/02/16 09:25; Start 07/02/16 at 00:30 Sodium Chloride (Normal Saline) 1,000 ml @ 100 mls/hr Q10H IV Last administered on 07/02/16 09:15; Start 07/01/16 at 21:51 Nicotine (Nicoderm 21 mg/ 24 Hr Patch) 1 patch DAILY TOPICAL Last administered on 07/02/16 09:21; Start 07/02/16 at 08:30 Insulin Human Lispro (HumaLOG Insulin Inj) Nutritional Dose to be given pr... [facility] SUBQ Last administered on 07/02/16 09:25; Start 07/02/16 at 02:18 Cholecalciferol (Vitamin D3) 2,000 unit DAILY PO Last administered on 07/02/16 09:19; Start 07/02/16 at 08:30 Polyethylene Glycol/ Electrolytes (Colyte) 4,000 ml ONCE ONCE PO Last administered on 07/02/16 11:18; Start 07/02/16 at 10:50; Stop 07/02/16 at 11:07; Status DC Bedside Blood Glucose: 267 Labs Test 07/01/16 19:20 07/02/16 03:44 07/02/16 13:25 Prothrombin Time 10.0sec (8.1-12.5) Prothromb Time International Ratio 0.94ratio Magnesium Level 1.6mg/dL (1.6-2.6) White Blood Count 8.8th/mm3 (3.8-10.1) Red Blood Count 3.04mil/mm3 (3.90-5.20) Mean Corpuscular Volume 98.7fL (81-100) Mean Corpuscular Hemoglobin 34.2pg (27.0-35.0) Mean Corpuscular Hemoglobin Concent 34.7% (32.0-37.0) Red Cell Distribution Width 12.3% (12.3-15.4) Platelet Count 215bil/L (150-400) Neutrophils (%) (Auto) 63.6% (40-74) Lymphocytes (%) (Auto) 24.9% (14-46) Monocytes (%) (Auto) 9.2% (4-12) Eosinophils (%) (Auto) 1.4% (0-5) Basophils (%) (Auto) 0.6% (0-3) Sodium Level 139mEq/L (134-144) Potassium Level 4.5mEq/L (3.5-5.2) Chloride Level 103mEq/L (97-108) Carbon Dioxide Level 19mmol/L (18-29) Blood Urea Nitrogen 9mg/dL (8-27) Creatinine 0.37mg/dL (0.57-1.00) Estimat Glomerular Filtration Rate 245mL/min (>59) Glucose Level 278mg/dL (60-99) Calcium Level 8.2mg/dL (8.5-10.1) Total Bilirubin 0.4mg/dL (0.0-1.2) Aspartate Amino Transf (AST/SGOT) 12U/L (0-50) Alanine Aminotransferase (ALT/SGPT) 7U/L (0-32) Alkaline Phosphatase 77U/L (25-165) Total Protein 4.9g/dL (6.4-8.4) Albumin 3.2g/dL (3.4-5.0) Hemoglobin 11.6g/dL (12.0-15.6) Hematocrit 35.2% (35.0-46.0) Plan Impression Patient chart reviewed, patient interviewed and anesthestic plan with risks, benefits, and alternatives discussed, and informed consent obtained. NPO per Anesth. Guidelines: Yes ASA Physical Status: ASA3 Severe Disease Bene/Risks/Altern/Consents: Yes HP Complete Prior to Induction: Yes Juan Brown MD July 02, 2016 15:52
[2016-07-02] MEDS ORDERED: Ondansetron 2 mg/mL 2 mL Inj IVPUSH PRN (16:10)
[2016-07-02] MEDS ORDERED: Lactated Ringer's 1,000 ML IV ONE (16:10)
[2016-07-02] MEDS: Lactated Ringer's 1,000 ML IV SCH ×3 (16:10→16:37)
[2016-07-02] MEDS ORDERED: MetoCLOpramide 5 mg/mL 2 mL Inj IVPUSH PRN (16:10)
[2016-07-02] MEDS ORDERED: EPINEPHrine 0.1 mg/mL 10 mL Syringe IV ONE (16:22)
--- NOTE | 2016-07-02 16:30 | PCM.ENDCOL ---
Colonoscopy Date of Service: July 02, 2016 Physician Torsten Patino MD Pre Procedure Diagnosis: GI bleeding Post Procedure Dx & Findings: Post polypectomy bleed Procedure Colonoscopy PROCEDURE IN DETAIL: Prep fair After unremarkable rectal examination the Olympus video colonoscope was inserted patient's anal canal and was advanced to cecum. Landmarks were identified including the ileocecal valve and appendiceal orifice. Scope was withdrawn systematically. No gross bleeding noted. However multiple diverticuli noted with scarring in the sigmoid colon. Also there was a 1 cm polyp that was noticed on the way in in the sigmoid colon. In the ascending colon right next to the ileocecal valve, there was a large 2 cm ulceration with mucosal defect with 4 clips. In the middle of the ulceration, there was a spot which the clip did not cover. In that spot, there was a visible vessel. 2 mL epinephrine injected. One Endo Clip was successfully deployed at the base. To ensures stabilization of the critical clip, second clip was deployed across it holding the base of this clip. One clip misfired. This misfired clip was the first clip was attempted to deploy initially. In the rectum retroflexion was done which showed hemorrhoids. Anal canal was inspected carefully on the way out and hemorrhoids noted. Impression Successful hemostasis of post-polypectomy bleed Recommendation CXR PA and Lateral per anesthesia Repeat colonoscopy in 2-3 month Follow-up in the GI clinic with Dr. Novak. Presedation Assessment Risks and Benefits Informed consent was obtained from the patient after all risks and benefits including but not limited to drug reaction, infection, pain, bleeding, perforation, as well as alternatives were discussed. Patient monitoring Continuous pulse oximetry, cardiac monitoring, blood pressure monitoring, IV access, and oxygen at 2L per nasal cannula. Complications There were no periprocedural complications identified. Post Procedure Plan Post Procedure Recommendations 1. Restrict activities today. 2. Resume normal activities in the morning. 3. Resume medications. 4. Patient informed of normal post procedure side effects as bloating, drowsiness, blood streaking in the stool. 5. average risk CRCS. If colon polyps come back as: -Hyperplastic- can repeat colonoscopy in 10 years -Tubular adenoma- repeat colonoscopy in 5 years -Tubulovillous/villous adenoma- repeat colonoscopy in 3 years -If any dysplasia- return to clinic as soon as possible 6. Please don't hesitate to call me with any questions. Dexter Mullen MD July 02, 2016 16:30
--- NOTE | 2016-07-02 16:58 | PCM.ANEP1 ---
Post Anesthesia Phase 1 PACU Phase 1 Assessment Date of Service: July 02, 2016 Vital Signs Vital Signs Date Time Temp Pulse Resp B/P Pulse Ox O2 Delivery O2 Flow Rate FiO2 07/02/16 16:40 102 16 88/47 100 Nasal Cannula 2 07/02/16 11:54 118 18 139/69 99 Room Air 07/02/16 11:00 Room Air 07/02/16 10:38 104 16 112/57 100 Nasal Cannula 2 07/02/16 10:00 118 Anesthetic Administered: MAC Level of Alertness: Awake, talking Pain: No Nausea or Vomiting: No Oxygen Delivery: Room Air Lungs: Clear to Auscultation Complications: Yes Follow up Care: Yes Comments During the colonoscopy, the patient was seen to have large volume clear fluid vomit. Her oropharynx was suction with her head of bed lowered to allow passive drainage away from her airway. She appeared to protect her airway throughout as she resisted the suction catheter with her tongue. She remained 100% throughout on pulse-ox. After the procedure, she was clear to auscultation and had no subjective feeling of tight chest or respiratory distress. A CXR was discussed with the primary team to further evaluate her risk of potential aspiration. Juan Brown MD July 02, 2016 16:58
[2016-07-02] MEDS: Pantoprazole 4 mg/mL 10 mL Inj IVPUSH SCH (17:06)
--- NOTE | 2016-07-02 17:50 | DRSVH ---
PROCEDURE: X-RAY CHEST ONE VIEW, PORTABLE ([id number]) INDICATIONS: post anesthesia with concern for aspiration TECHNIQUE: One view of the chest was acquired. COMPARISON: [facility], , CHEST 1VW (PORTABLE), 01/19/2010, 16:44. FINDINGS: Surgical changes and devices: None. Lungs and pleura: No pleural effusions or pneumothorax. Lungs are clear. Mediastinum: Mediastinal contours appear normal. Heart size is normal. Bones and chest wall: No suspicious bony lesions. Overlying soft tissues appear unremarkable. IMPRESSION: No acute process. Dictated by: Du Chavez M.D. on 07/02/2016 at 17:48 Approved by: Du Chavez M.D. on 07/02/2016 at 17:49
[2016-07-02] MEDS: HYDROcodone-APAP 5-325 mg Tablet PO PRN (19:59)
[2016-07-03] MEDS: Sodium Chloride LOK Flush 10 mL Syringe IVFLUSH SCH ×4 (00:30→23:06)
[2016-07-03 03:19] LABS: Mean Corpuscular Hemoglobin 32.7 pg (27.0-35.0); Mean Corpuscular Volume 99.5 fL (81-100)
[2016-07-03 04:59] VITALS: BP 97/51; PULSE 107; RESP 18; O2SAT 99
[2016-07-03] MEDS: 0.9% Sodium Chloride 1,000 ML IV SCH (06:27)
[2016-07-03] MEDS: Pantoprazole 4 mg/mL 10 mL Inj IVPUSH SCH ×2 (07:30→16:30)
[2016-07-03] MEDS: Insulin LISPRO 300 Unit/3 mL Inj SUBQ SCH ×4 (08:00→22:00)
[2016-07-03 08:07] VITALS: BP 105/55; PULSE 104; RESP 16; O2SAT 93
[2016-07-03 08:29] LABS: Mean Corpuscular Hemoglobin 33.7 pg (27.0-35.0); Mean Corpuscular Volume 100.8 fL (81-100)
[2016-07-03 09:23] VITALS: PULSE 95
--- NOTE | 2016-07-03 11:03 | PCM.PNMED ---
Subjective Date of Service July 03, 2016 Subjective GI progress note Abdomen a patient did well. Hemoglobin this morning dropped over a point down to 7.0 with a repeat of 7.1. No transfusion was performed in the next hemoglobin a few hours later was 8.4. Unsure why this tip occurred but does not seem to be related to any bleeding. Patient denies hematemesis or hematochezia/melena. Patient states she is feeling much better although she is tired. White count this morning was elevated this is somewhat worrisome in the setting of her recent colonoscopy where there is some concern for aspiration from anesthesia. Exam Vital Signs Vital Sign - Last Date Time Temp Pulse Resp B/P Pulse Ox O2 Delivery O2 Flow Rate FiO2 07/03/16 09:23 95 07/03/16 08:07 37.0 16 105/55 93 07/03/16 04:59 Room Air 07/02/16 16:40 2 Intake and Output 07/02/16 07/02/16 07/03/16 Cumulative From/Thru 15:00 23:00 07:00 07/01/16 18:49 - 07/03/16 06:53 Intake Total 1984 ml 1352 ml 4908 ml Output Total 1500 ml 625 ml 2125 ml Balance 484 ml 727 ml 2783 ml Intake Oral 240 ml 400 ml 640 ml IV Total 1744 ml 952 ml 4268 ml Output Urine Total 1500 ml 625 ml 2125 ml Exam Gen.: Patient no acute distress, alert and oriented HEENT, conjunctiva still pale, PERRLA, neck is supple Cardio: Regular rate and rhythm, 3/6 systolic murmur heard best at the right upper sternal border Respiratory: CTA bilaterally no wheezes Abdomen: Soft, nontender, nondistended, active bowel tones Extremities: Pulses equal and intact Neurologic grossly intact Skin warm Psych: Appropriate mood and affect IVs and Medications Medications Reviewed: Medications were reviewed in detail Lab and Diagnostics Result Diagram: 07/03/16 0815 07/02/16 0344 Assessment & Plan Assessment/plan 75-year-old female with hematochezia 2 days after polypectomy who underwent colonoscopy with hemostasis on July 02. Since that time patient has not had a bowel movement but also does not report any rectal bleeding. Patient did have a dip in her hemoglobin without transfusion corrected to 8.4. Currently unsure why there were 2 consecutive labs of 7 and 7.1. Since been transferred within the hospitals multiple patients on our service experience the same trend with repeat labs showing improved hemoglobins. Patient's nausea is well controlled. Patient's white count has been increase in the last couple of days missed concerning in the setting of possible aspiration on day of colonoscopy. Last chest x-ray was negative but we feel that a repeat chest x-ray today or tomorrow be appropriate. We will leave these decisions up to the primary team. Patient also has a mild macrocytosis and recommend B12 and folate prior to discharge. Additional recommendations after patient is discharged is to undergo repeat colonoscopy in 2-3 months as well as follow-up in the GI clinic with Dr. Novak. Thank you for allowing us to participate in the care of this patient. I saw and examined this patient with the resident. Agree with the above. VTE Prophylaxis: SCDs Resuscitation Status: CPR: Attempt Resuscitation Eladio Browning DO July 03, 2016 11:03 Dexter Mullen MD July 11, 2016 20:09 Disposition: possibly home in 1-2 days pending colonoscopy finding, stable h/h and ability to tolerate advancing diet. VTE Prophylaxis: SCDs Resuscitation Status: CPR: Attempt Resuscitation Eladio Browning DO July 03, 2016 11:03
[2016-07-03 14:00] LABS: BASOPHILS % (AUTO) 0.3 % (0-3); EOSINOPHILS % (AUTO) 0.1 % (0-5); Mean Corpuscular Hemoglobin 32.9 pg (27.0-35.0); Mean Corpuscular Volume 101.3 fL (81-100); NEUTROPHILS % (AUTO) 76.4 % (40-74); Platelet Count 253 bil/L (150-400)
--- NOTE | 2016-07-03 15:21 | PCM.PNMED ---
Subjective Date of Service July 03, 2016 Subjective Mrs Avalos is a pleasant 75yo woman with DM type 1 with gastroparesis, GERD, osteoporosis, hx of CVA here with a GI bleed s/p outpatient colonoscopy with polypectomy on 06/29 and two reported polyps that were not removed due to bleeding risk. She had a day without bleeding, then had 8-9 blood stools, BRBPR. She did undergo colonoscopy with further polypectomy and hemostasis on . Her Hgb has gone down to 7.0 and improved to 8.4 without transfusion. She is feeling back to normal today and would like to go home. However, overnight she developed a white count of 15.2 and is still mildly tachycardic. Exam Vital Signs Vital Sign - Last Date Time Temp Pulse Resp B/P Pulse Ox O2 Delivery O2 Flow Rate FiO2 07/03/16 09:23 95 07/03/16 08:07 37.0 16 105/55 93 07/03/16 04:59 Room Air 07/02/16 16:40 2 Intake and Output 07/02/16 07/02/16 07/03/16 Cumulative From/Thru 15:00 23:00 07:00 07/01/16 18:49 - 07/03/16 06:53 Intake Total 1984 ml 1352 ml 4908 ml Output Total 1500 ml 625 ml 2125 ml Balance 484 ml 727 ml 2783 ml Intake Oral 240 ml 400 ml 640 ml IV Total 1744 ml 952 ml 4268 ml Output Urine Total 1500 ml 625 ml 2125 ml Exam General: Alert, Cooperative, No Acute Distress Head: Normal Eyes: Scleral Anicteric Nose: Mucous Membr Moist/[place] Mouth: Mucous Membr Moist/[place], upper dentures Neck: Supple Chest & Lungs: Chest Wall Normal, Clear to auscultation & percussion Cardiovascular: Tachycardia, regular rhythm, 2/6 systolic murmur best appreciated at the RUSB, no clicks, murmurs, rubs, or gallops Abdomen: Non-tender, Non-distended, Normoactive bowel tones, Soft Extremities: No cyanosis/clubbing/edma bilat Neurological: Grossly Neurologically Intact, Normal Speech IVs and Medications Medications Reviewed: Medications were reviewed in detail Lab and Diagnostics Result Diagram: 07/03/16 1355 07/02/16 0344 12-lead ECG Sinus Tachycardia Assessment & Plan Assessment/plan 75-year-old female with hematochezia 2 days after polypectomy who underwent colonoscopy with hemostasis on July 02. Since that time patient has not had a bowel movement but also does not report any rectal bleeding. Patient did have a dip in her hemoglobin without transfusion corrected to 8.4. Currently unsure why there were 2 consecutive labs of 7 and 7.1. Patient's white count has been increase in the last couple of days which is concerning in the setting of possible aspiration on day of colonoscopy. Patient also has a mild macrocytosis. 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 - 15.2 early on 07/03 and 14.9 in the afternoon on 07/03/16. Cause unknown, but GI note from procedure indicates possibility of aspiration with anesthesia. - Procalcitonin elevated at 0.32 - Repeat CXR 2 view ordered -Trend CBC with differential and procalcitonin. 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 not controlled - Continue home medications Lantus - Cover with Insulin Sliding scale. History of ischemic stroke - Continue medication pravastatin 20 mg by mouth daily - Aspirin on hold given GI bleed noted above - Resumption of Aspirin per GI recommendations. Chronic and stable problems: Osteoarthritis, assume stable - Patient takes Vicodin 06/28/2024 milligrams 1 tablet by mouth every 4 hours when necessary for pain Tobacco use disorder - Smokes 12 cigarettes per day - Nicotine patch while in-house Diabetic Gastroparesis, stable GERD, stable Osteoporosis, assume stable Disposition: possibly home in 1-2 days pending colonoscopy finding, stable h/h and ability to tolerate advancing diet. VTE Prophylaxis: SCDs Resuscitation Status: CPR: Attempt Resuscitation Additional recommendations after patient is discharged is to undergo repeat colonoscopy in 2-3 months as well as follow-up in the GI clinic with Dr. Novak. Pain Evaluation: Adequate Pain Control VTE Prophylaxis: SCDs Resuscitation Status: CPR: Attempt Resuscitation Attending Statement The patient was seen and examined together with Resident/House-Staff on 07/03/16 and I agree with the history, exam and plan as outlined in the note above. Charles Duffy DO July 03, 2016 15:21 Luis Henriquez July 03, 2016 17:18
[2016-07-03] MEDS ORDERED: 0.9% Sodium Chloride 250 ML IV SCH (16:40)
[2016-07-03 18:00] VITALS: BP 112/56; RESP 16; O2SAT 96
[2016-07-03 20:00] VITALS: PULSE 104
--- NOTE | 2016-07-03 20:23 | DRSVH ---
PROCEDURE: X-RAY CHEST, TWO VIEWS ([id number]) INDICATIONS: tachy, leukocytosis TECHNIQUE: 2 views of the chest were acquired. COMPARISON: [facility], , CHEST 1VW (PORTABLE), 01/19/2010, 16:44. FINDINGS: Surgical changes and devices: None. Lungs and pleura: There is patchy opacity and effusion within the left base. Mediastinum: Mediastinal contours are normal. Heart size is normal. Bones and chest wall: No suspicious bony abnormalities. Soft tissues appear unremarkable. IMPRESSION: Left basilar opacity and effusion most suggestive of pneumonia. Recommend interval follow up after appropriate therapy to document resolution. Dictated by: Carmelina Armijo M.D. on 07/03/2016 at 20:21 Approved by: Carmelina Armijo M.D. on 07/03/2016 at 20:21
[2016-07-03] MEDS ORDERED: Insulin LISPRO 300 Unit/3 mL Inj SUBQ ONE (20:30)
[2016-07-03 21:01] VITALS: BP 105/53; PULSE 99; RESP 20; O2SAT 94
[2016-07-03] MEDS: HYDROcodone-APAP 5-325 mg Tablet PO PRN (21:35)
[2016-07-03] MEDS: Insulin GLARgine 100 Unit/mL Syringe SUBQ SCH (22:34)
[2016-07-04] VITALS (7 sets, daily range): BP systolic 93–127; BP diastolic 56–68; PULSE 98–105; RESP 16–18; O2SAT 91–95
[2016-07-04 04:43] LABS: BASOPHILS % (AUTO) 0.6 % (0-3); EOSINOPHILS % (AUTO) 2.6 % (0-5); MONOCYTES % (AUTO) 12.2 % (4-12); Mean Corpuscular Hemoglobin 33.2 pg (27.0-35.0); Mean Corpuscular Volume 99.6 fL (81-100); NEUTROPHILS % (AUTO) 59.1 % (40-74); Platelet Count 242 bil/L (150-400)
[2016-07-04] MEDS ORDERED: Insulin LISPRO 300 Unit/3 mL Inj SUBQ ONE (04:45)
[2016-07-04 05:36] LABS: APPEARANCE,URINE CLEAR (CLEAR,HAZY); COLOR,URINE YELLOW (YELLOW); OCCULT BLOOD,URINE NEGATIVE (NEGATIVE); UROBILINOGEN,URINE NORMAL (NORMAL)
[2016-07-04 05:37] LABS: ICTOTEST,URINE POSITIVE (Negative)
[2016-07-04] MEDS: Pantoprazole 4 mg/mL 10 mL Inj IVPUSH SCH (07:30)
[2016-07-04] MEDS: Insulin LISPRO 300 Unit/3 mL Inj SUBQ SCH ×2 (07:56→12:00)
[2016-07-04] MEDS: Sodium Chloride LOK Flush 10 mL Syringe IVFLUSH SCH (08:30)
--- NOTE | 2016-07-04 08:35 | PCM.PNMED ---
Subjective Date of Service July 04, 2016 Subjective GI progress note Overnight patient had difficulty breathing otherwise slept well. No hematochezia/nausea/vomiting/abdominal pain. Hematocrit is stable. There is an chest x-ray which showed left lower base opacity and she recently had concern perspiration. Exam Vital Signs Vital Sign - Last Date Time Temp Pulse Resp B/P Pulse Ox O2 Delivery O2 Flow Rate FiO2 07/04/16 07:49 36.8 100 16 101/60 95 Room Air 07/02/16 16:40 2 Intake and Output 07/03/16 07/03/16 07/04/16 Cumulative From/Thru 15:00 23:00 07:00 07/01/16 18:49 - 07/04/16 04:45 Intake Total 830 ml 5738 ml Output Total 2125 ml Balance 830 ml 3613 ml Intake Oral 830 ml 1470 ml IV Total 4268 ml Output Urine Total 2125 ml # Voids 4 4 Exam Gen.: Patient no acute distress, alert and oriented HEENT, conjunctiva still pale, PERRLA, neck is supple Cardio: Regular rate and rhythm, 3/6 systolic murmur heard best at the right upper sternal border Respiratory: CTA bilaterally with crackles in bases Abdomen: Soft, nontender, nondistended, active bowel tones Extremities: Pulses equal and intact Neurologic grossly intact Skin warm Psych: Appropriate mood and affect IVs and Medications Medications Reviewed: Medications were reviewed in detail Lab and Diagnostics Result Diagram: 07/04/1640407/04/16404 12-lead ECG Sinus Tachycardia Assessment & Plan Assessment/plan 75-year-old with post polypectomy bleeding with hemostasis on 07/02. From a GI standpoint the patient stable with no continued bleeding. Appears that patient has a new left lower base opacity and there was a concern for aspiration during colonoscopy. White count however is improving without antibiotics and patient seems to be doing okay while awake. She did have one short episode of shortness of breath last night that resolved. This time anticipate that we will sign off with recommendations as noted in previous notes. Mainly patient will need a colonoscopy in 2-3 months and will need to follow-up with Dr. fischer within 2 weeks of discharge. GI will sign off at this time. Thank you for allowing us to participate in the care of this patient. I saw and examined this patient with the resident. Agree with the above. VTE Prophylaxis: SCDs Resuscitation Status: CPR: Attempt Resuscitation Eladio Browning DO July 04, 2016 08:35 Dexter Mullen MD July 11, 2016 20:10
--- NOTE | 2016-07-04 13:00 | PCM.DIMED ---
Discharge Instructions Date of Service July 04, 2016 Dates of Hospitalization July 01, 2016 at 20:56 Discharge Diagnosis Discharge Diagnosis Lower GI Bleed, Acute Anemia due to blood loss, Type 1 Diabetes Medication Instructions Continue home medications as before Do not take NSAIDs like ibuprofen, alleve, or motrin Test Results Laboratory Tests Test 07/03/16 13:55 07/04/16 04:05 White Blood Count 14.9th/mm3 (3.8-10.1) 11.2th/mm3 (3.8-10.1) Red Blood Count 2.37mil/mm3 (3.90-5.20) 2.35mil/mm3 (3.90-5.20) Hemoglobin 7.8g/dL (12.0-15.6) 7.8g/dL (12.0-15.6) Hematocrit 24.0% (35.0-46.0) 23.4% (35.0-46.0) Mean Corpuscular Volume 101.3fL (81-100) 99.6fL (81-100) Mean Corpuscular Hemoglobin 32.9pg (27.0-35.0) 33.2pg (27.0-35.0) Mean Corpuscular Hemoglobin Concent 32.5% (32.0-37.0) 33.3% (32.0-37.0) Red Cell Distribution Width 12.2% (12.3-15.4) 12.2% (12.3-15.4) Platelet Count 253bil/L (150-400) 242bil/L (150-400) Neutrophils (%) (Auto) 76.4% (40-74) 59.1% (40-74) Lymphocytes (%) (Auto) 15.9% (14-46) 25.2% (14-46) Monocytes (%) (Auto) 7.0% (4-12) 12.2% (4-12) Eosinophils (%) (Auto) 0.1% (0-5) 2.6% (0-5) Basophils (%) (Auto) 0.3% (0-3) 0.6% (0-3) Urine Color Yellow (YELLOW) Urine Appearance Clear (CLEAR,HAZY) Urine pH 6.0 (5.0-8.0) Urine Specific [place] 1.026 (1.003-1.035) Urine Protein Negativemg/dL (NEG,TRACE) Urine Glucose (UA) >1000mg/dL (NEGATIVE) Urine Ketones 15mg/dL (NEGATIVE) Urine Occult Blood Negative (NEGATIVE) Urine Nitrite Negative (NEGATIVE) Urine Bilirubin Small (NEGATIVE) Urine Ictotest Positive (Negative) Urine Urobilinogen Normalmg/dL (NORMAL) Urine Leukocyte Esterase Negative (NEGATIVE) Urine RBC 0-2/hpf (0-2) Urine WBC 6-10/hpf (0-5) Urine Epithelial Cells Occasional/hpf (NONE-MOD) Urine Crystals None seen (NONE SEEN) Urine Bacteria Few/hpf (NONE-FEW) Urine Hyaline Casts None/lpf (NONE) Urine Granular Casts None seen (NONE SEEN) Urine Waxy Casts None seen (NONE SEEN) Urine Red Blood Cell Casts None seen (NONE SEEN) Urine White Blood Cell Casts None seen (NONE SEEN) Urine Mucus Present (None Seen) Urine Trichomonas None seen (NONE SEEN) Urine Yeast None (NONE SEEN) Urine Culture Reflexed Indicated Sodium Level 141mEq/L (134-144) Potassium Level 4.3mEq/L (3.5-5.2) Chloride Level 104mEq/L (97-108) Carbon Dioxide Level 24mmol/L (18-29) Blood Urea Nitrogen 15mg/dL (8-27) Creatinine 0.66mg/dL (0.57-1.00) Estimat Glomerular Filtration Rate 125mL/min (>59) Glucose Level 297mg/dL (60-99) Calcium Level 8.6mg/dL (8.5-10.1) Procalcitonin 0.25ng/mL (0.00-0.08) Urine Legionella pneumophilia Ag Negative (Negative) Microbiology 07/04/16 Streptococcus pneumoniae Ag Screen - Final, Complete Diet No restrictions Activity No restrictions Call your provider Fever or Chills, Shortness of breath, Bleeding, Chest pain, Vomitting, Excessive diarrhea, Weakness (unilateral) Patient Instructions Please return to the hospital if you have any sign of bleeding with bowel movements, dark tarry stools, or vomiting that looks like coffee grounds or blood. Do take iron supplements daily. Continue your home medications as before, the GI doctors have said you can start your baby Aspirin again, but do not take any other NSAIDs like Ibuprofen, Alleve, Motrin, etc. Follow up with Dr Elizabeth this week. Follow-up plan Primary care this week Repeat colonoscopy in 2-3 months Follow-up Provider: Velasquez Elizabeth MD Follow-up with PCP in: 1 week Charles Duffy DO July 04, 2016 13:00
--- NOTE | 2016-07-04 19:59 | PCM.DC.MED ---
Discharge Summary Date of Service July 04, 2016 Dates of Hospitalization Date of Hospital Admission July 01, 2016 at 20:56 Date of Discharge: July 04, 2016 Providers: Admitting Physician: Torsten Patino MD Primary Care Physician: Velasquez Elizabeth MD Attending Physician: Torsten Patino MD Diagnosis at Time of Discharge Diagnosis at Time of Discharge Lower GI Bleed, Acute Anemia due to blood loss, Type 1 Diabetes, pneumonitis Consultations Dexter Mullen M.D., gastroenterology Procedures XRay, CTs & MRIs Chest x-ray 07/03/2016 IMPRESSION: Left basilar opacity and effusion most suggestive of pneumonia. Recommend interval followup after appropriate therapy to document resolution. ECG 12 Lead Sinus Tachycardia Invasive Procedures Colonoscopy with polypectomy, 07/02/2016 Impression Successful hemostasis of post-polypectomy bleed Recommendation CXR PA and Lateral per anesthesia for possible aspiration Repeat colonoscopy in 2-3 month Follow-up in the GI clinic with Dr. Novak. Brief History 75-year-old female with hematochezia 2 days after polypectomy on June 29 with subsequent hematochezia and bright red blood per rectum, came to the emergency room and was admitted and underwent colonoscopy with hemostasis on July 02. Since that time patient has not had a bowel movement but also does not report any rectal bleeding. Patient did have a dip in her hemoglobin without transfusion corrected to 8.4. Currently unsure why there were 2 consecutive labs of 7 and 7.1. Patient's white count increased to 15.2 after the procedure which is concerning in the setting of possible aspiration on day of colonoscopy. She did remain asymptomatic as far as cough or shortness of breath. Patient also has a mild macrocytosis. Hospital Course Acute lower GI bleed 2 days after her colonoscopy, present on admission, resolved - Appreciate GI consult - Colonoscopy on 07/02/16 with polypectomy and hemostasis - nursery helper Hgb is 8.4, improved from 7.0 on 07/02/2016 - Patient refused blood transfusion on 07/02/2016 - We appreciate Dr. Mullen's consult and intervention. He recommends follow-up colonoscopy in 3 months Pneumonitis, not present on admission. Improving - White count of 15.2 early on 07/03 and 14.9 in the afternoon on 07/03/16. Cause unknown, but GI note from procedure indicates possibility of aspiration with anesthesia. - Procalcitonin elevated at 0.32 then trending downward - Repeat CXR 2 view revealed left lower consolidation and effusion - Abnormal chest x-ray attributed to aspiration and inflammation, no clinical evidence of pneumonia -Trended CBC with differential and procalcitonin. White count temporal calcitonin did trend down - Patient had an hour of shortness of breath early in the morning on 07/04/2016 requiring oxygen by nasal cannula -No hypoxia with respiratory therapy on ambulation in the morning of 07/04/2016 , no cough, no chest pain Tachycardia, mild, present on admission, ongoing - Likely secondary to acute blood loss - Continuous cardiac care nurse Hyperglycemia in Type 1 Diabetic, present on admission. not controlled - Continued home medications Lantus - Covered with Insulin Sliding scale. History of ischemic stroke - Continue medication pravastatin 20 mg by mouth daily - Aspirin on hold given GI bleed noted above - Resumption of Aspirin per GI recommendations. Macrocytic anemia-present on admission - We recommend outpatient follow-up with B12 and folate levels Chronic and stable problems: Osteoarthritis, assume stable - Patient takes Vicodin 06/28/2024 milligrams 1 tablet by mouth every 4 hours when necessary for pain Tobacco use disorder - Smokes 12 cigarettes per day - Nicotine patch while in-house Diabetic Gastroparesis, stable GERD, stable Osteoporosis, assume stable Exam Vital Signs (Last) Date Time Temp Pulse Resp B/P Pulse Ox O2 Delivery O2 Flow Rate FiO2 07/04/16 11:09 98 07/04/16 10:27 127/63 07/04/16 07:49 36.8 16 95 Room Air 07/02/16 16:40 2 Exam Home Test 07/01/16 19:20 07/02/16 03:44 07/04/16 04:05 Prothrombin Time 10.0sec (8.1-12.5) Prothromb Time International Ratio 0.94ratio Hemoglobin A1c 8.6% (4.8-5.6) Magnesium Level 1.6mg/dL (1.6-2.6) Total Bilirubin 0.4mg/dL (0.0-1.2) Aspartate Amino Transf (AST/SGOT) 12U/L (0-50) Alanine Aminotransferase (ALT/SGPT) 7U/L (0-32) Alkaline Phosphatase 77U/L (25-165) Total Protein 4.9g/dL (6.4-8.4) Albumin 3.2g/dL (3.4-5.0) White Blood Count 11.2th/mm3 (3.8-10.1) Red Blood Count 2.35mil/mm3 (3.90-5.20) Hemoglobin 7.8g/dL (12.0-15.6) Hematocrit 23.4% (35.0-46.0) Mean Corpuscular Volume 99.6fL (81-100) Mean Corpuscular Hemoglobin 33.2pg (27.0-35.0) Mean Corpuscular Hemoglobin Concent 33.3% (32.0-37.0) Red Cell Distribution Width 12.2% (12.3-15.4) Platelet Count 242bil/L (150-400) Neutrophils (%) (Auto) 59.1% (40-74) Lymphocytes (%) (Auto) 25.2% (14-46) Monocytes (%) (Auto) 12.2% (4-12) Eosinophils (%) (Auto) 2.6% (0-5) Basophils (%) (Auto) 0.6% (0-3) Urine Color Yellow (YELLOW) Urine Appearance Clear (CLEAR,HAZY) Urine pH 6.0 (5.0-8.0) Urine Specific [place] 1.026 (1.003-1.035) Urine Protein Negativemg/dL (NEG,TRACE) Urine Glucose (UA) >1000mg/dL (NEGATIVE) Urine Ketones 15mg/dL (NEGATIVE) Urine Occult Blood Negative (NEGATIVE) Urine Nitrite Negative (NEGATIVE) Urine Bilirubin Small (NEGATIVE) Urine Ictotest Positive (Negative) Urine Urobilinogen Normalmg/dL (NORMAL) Urine Leukocyte Esterase Negative (NEGATIVE) Urine RBC 0-2/hpf (0-2) Urine WBC 6-10/hpf (0-5) Urine Epithelial Cells Occasional/hpf (NONE-MOD) Urine Crystals None seen (NONE SEEN) Urine Bacteria Few/hpf (NONE-FEW) Urine Hyaline Casts None/lpf (NONE) Urine Granular Casts None seen (NONE SEEN) Urine Waxy Casts None seen (NONE SEEN) Urine Red Blood Cell Casts None seen (NONE SEEN) Urine White Blood Cell Casts None seen (NONE SEEN) Urine Mucus Present (None Seen) Urine Trichomonas None seen (NONE SEEN) Urine Yeast None (NONE SEEN) Urine Culture Reflexed Indicated Sodium Level 141mEq/L (134-144) Potassium Level 4.3mEq/L (3.5-5.2) Chloride Level 104mEq/L (97-108) Carbon Dioxide Level 24mmol/L (18-29) Blood Urea Nitrogen 15mg/dL (8-27) Creatinine 0.66mg/dL (0.57-1.00) Estimat Glomerular Filtration Rate 125mL/min (>59) Glucose Level 297mg/dL (60-99) Calcium Level 8.6mg/dL (8.5-10.1) Procalcitonin 0.25ng/mL (0.00-0.08) Urine Legionella pneumophilia Ag Negative (Negative) Discharge Medications Discharge Medications Aspirin (Aspirin) 81 Mg Tablet 81 MG PO DAILY (Reported) Cholecalciferol (Vitamin D3) (Vitamin D3) 2,000 Unit Capsule 2,000 UNIT PO DAILY (Reported) Estradiol (Estradiol) 1 Mg Tablet 1 MG PO DAILY (Reported) Insulin Glargine (Lantus U100 Insulin Vial) 100 Unit/Ml Vial 10 UNITS SUBQ HS ( Reported) Pravastatin (Pravastatin) 20 Mg Tablet 20 MG PO DAILY (Reported) As needed Hydrocodone-Acetaminophen 5-325 mg (Hydrocodone-Acetaminophen 5-325 mg) 1 Each Tablet 1 TABLET PO Q4H PRN PRN For Pain (Reported) Insulin Human Lispro (HumaLOG U100 Insulin Vial) 100 Unit/Ml Unit 4-5 UNIT SUBQ DIRECTED PRN PRN DM (Reported) Check blood sugars before meals and at bedtime. Use correction factor only before meals. Blood Sugar Lispro Correction: <151, 0 units; 151-175, 1 unit; 176-200, 2 units; 201-225, 3 units; 226-250, 4 units; 251-275, 5 units; 276-300 , 6 units; 301-325, 7 units; 326-350, 8 units; 351-375, 9 units; 376-400, 10 units; >400, 12 units. Miscellaneous Medications Multivits-Min/Iron/FA/Lutein (Centrum Silver Women Tablet) 8 Mg Iron-400 Mcg- 300 Mcg Tablet 1 EACH PO (Reported) Additional med instructions Continue home medications as before Do not take NSAIDs like ibuprofen, alleve, or motrin Followup Plan Disposition: Home Follow-up plan Primary care this week Repeat colonoscopy in 2-3 months Discharge Diet: No restrictions Discharge Activity: No restrictions Patient Instructions Please return to the hospital if you have any sign of bleeding with bowel movements, dark tarry stools, or vomiting that looks like coffee grounds or blood. Return to the hospital also for shortness of breath, lightheadedness, or weakness. Do take iron supplements daily. Continue your home medications as before, the GI doctors have said you can start your baby Aspirin again, but do not take any other NSAIDs like Ibuprofen, Alleve, Motrin, etc. Follow up with Dr Elizabeth this week. Follow-up Provider: Velasquez Elizabeth MD Follow-up with PCP in: 1 week Time spent 35 min Attending Statement The patient was seen and examined together with Resident/House-staff on 07/04/16 and I agree with the history, exam and plan as outlined in the note above. copies to: Velasquez Elizabeth MD, Alan C DO July 04, 2016 19:59 Luis Henriquez July 07, 2016 16:57
== END 2016-07-04 13:40 | disposition home or self-care (01) | DRG 377 ==
LOC: SED 18:40 → PCC 20:56
PROVIDERS: ADMIT Hospitalist; ATTEND Hospitalist
PROC: 0DBK8ZX Excision of Ascending Colon, Via Natural or Artificial Opening Endoscopic, Diagnostic (ICD-10-PCS; 2016-06-29)
PROC: 0DJD8ZZ Inspection of Lower Intestinal Tract, Via Natural or Artificial Opening Endoscopic (ICD-10-PCS; 2016-07-02)
PROC: 3E0H8TZ Introduction of Destructive Agent into Lower GI, Via Natural or Artificial Opening Endoscopic (ICD-10-PCS; principal; 2016-07-02 10:30)
DX: K92.2 Gastrointestinal hemorrhage, unspecified (principal); J69.0 Pneumonitis due to inhalation of food and vomit; D62 Acute posthemorrhagic anemia; K21.9 Gastro-esophageal reflux disease without esophagitis; F17.210 Nicotine dependence, cigarettes, uncomplicated; K64.8 Other hemorrhoids; D75.89 Other specified diseases of blood and blood-forming organs; E10.65 Type 1 diabetes mellitus with hyperglycemia; M19.90 Unspecified osteoarthritis, unspecified site; Z88.0 Allergy status to penicillin; Z79.4 Long term (current) use of insulin; Z79.82 Long term (current) use of aspirin; Z86.73 Personal history of transient ischemic attack (TIA), and cerebral infarction without residual deficits; Z72.89 Other problems related to lifestyle